=== PATIENT | female | born 1960 | race Caucasian/White ===

== ENCOUNTER 2023-03-05 09:06 | Day surgery (SDC) | payer OTHER ==
[~2023-03-05] VITALS: Ht 162.6 cm; Wt 65.8 kg
[~2023-03-05 09:06] MED LIST: ISOVUE-300 (IOPAMIDOL) 100 ML INFUS..BTL IV ONE; LIDOCAINE 2%, 20 ML MDV ONE; NORMAL SALINE 10 ML VIAL ONE; methylPREDNISolone ACETATE 40 MG/ML ONE
[2023-03-05] MEDS ORDERED: fentaNYL CITRATE/PF 100 MCG/2 ML AMP ONE (12:11)
[2023-03-05] MEDS ORDERED: DIPHENHYDRAMINE INJ 50 MG/ML VIAL ONE (12:11)
[2023-03-05] MEDS: MIDAZOLAM HCL 5 MG/5 ML VIAL ONE ×2 (13:35→13:40)
[2023-03-06 12:58] VITALS: BP_SYST 159
== END 2023-03-05 14:55 | disposition home or self-care (01) ==
LOC: SDS 09:06 → SMU 09:07 → SDS 14:55
PROVIDERS: ATTEND Internal Medicine
DX: M51.16 Intervertebral disc disorders with radiculopathy, lumbar region (principal); I10 Essential (primary) hypertension; J45.909 Unspecified asthma, uncomplicated; E78.5 Hyperlipidemia, unspecified; M81.0 Age-related osteoporosis without current pathological fracture; Z79.899 Other long term (current) drug therapy
CPT/HCPCS: 62323; J1200; J2001; J1030; J2250; J3010; Q9967; 76000

== ENCOUNTER 2023-06-04 07:57 | Day surgery (SDC) | payer OTHER ==
[~2023-06-04] VITALS: Ht 162.6 cm; Wt 65.8 kg
[2023-06-04] MEDS ORDERED: ONDANSETRON HCL 4 MG/2 ML VIAL ONE (08:56)
[2023-06-04] MEDS ORDERED: fentaNYL CITRATE/PF 100 MCG/2 ML AMP ONE (08:56)
[2023-06-04] MEDS ORDERED: LIDOCAINE 2%, 20 ML MDV ONE (10:00)
[2023-06-04] MEDS ORDERED: iopamidoL 50 ML VIAL IV ONE (10:00)
[2023-06-04] MEDS ORDERED: methylPREDNISolone ACETATE 40 MG/ML ONE (10:00)
[2023-06-04] MEDS ORDERED: NORMAL SALINE 10 ML VIAL ONE (10:00)
[2023-06-04] MEDS: DIPHENHYDRAMINE INJ 50 MG/ML VIAL ONE ×2 (10:04→10:06)
[2023-06-04] MEDS: MIDAZOLAM HCL 5 MG/5 ML VIAL ONE ×2 (10:05→10:07)
[2023-06-04 13:13] VITALS: O2SAT 100
[2023-06-04 14:16] VITALS: BP_SYST 134; PULSE 56; RESP 16
== END 2023-06-04 11:10 | disposition home or self-care (01) ==
LOC: SDS 07:57 → SMU 07:58 → SDS 11:10
PROVIDERS: ATTEND Internal Medicine
DX: M51.16 Intervertebral disc disorders with radiculopathy, lumbar region (principal); M51.9 Unspecified thoracic, thoracolumbar and lumbosacral intervertebral disc disorder; I10 Essential (primary) hypertension; E78.5 Hyperlipidemia, unspecified; J45.909 Unspecified asthma, uncomplicated; M81.0 Age-related osteoporosis without current pathological fracture; Z88.5 Allergy status to narcotic agent; Z88.8 Allergy status to other drugs, medicaments and biological substances; Z79.899 Other long term (current) drug therapy
CPT/HCPCS: 62323; J1200; J2001; J1030; J2250; J2405; J3010; Q9967; 76000

== ENCOUNTER 2023-09-03 07:57 | Day surgery (SDC) | payer OTHER ==
[~2023-09-03] VITALS: Ht 162.6 cm; Wt 64.9 kg
[2023-09-03] MEDS ORDERED: fentaNYL CITRATE/PF 100 MCG/2 ML AMP ONE (08:30)
[2023-09-03] MEDS ORDERED: ONDANSETRON HCL 4 MG/2 ML VIAL ONE (08:30)
[2023-09-03] MEDS: DIPHENHYDRAMINE INJ 50 MG/ML VIAL ONE ×2 (09:55→09:56)
[2023-09-03] MEDS: MIDAZOLAM HCL 5 MG/5 ML VIAL ONE ×2 (10:03→10:05)
[2023-09-03 12:24] VITALS: O2SAT 96
[2023-09-03 15:39] VITALS: BP_SYST 137; PULSE 58; RESP 17
== END 2023-09-03 11:10 | disposition home or self-care (01) ==
LOC: SDS 07:57 → SMU 07:58 → SDS 11:10
PROVIDERS: ATTEND Internal Medicine
DX: M51.16 Intervertebral disc disorders with radiculopathy, lumbar region (principal); M51.9 Unspecified thoracic, thoracolumbar and lumbosacral intervertebral disc disorder; I10 Essential (primary) hypertension; E78.5 Hyperlipidemia, unspecified; J45.909 Unspecified asthma, uncomplicated; M81.0 Age-related osteoporosis without current pathological fracture; Z88.5 Allergy status to narcotic agent; Z88.8 Allergy status to other drugs, medicaments and biological substances; Z79.899 Other long term (current) drug therapy
CPT/HCPCS: 62323; J1200; J2250; J2405; J3010; 76000